=== PATIENT | male | born 1965 | race American Indian/Alaskan Native ===

== ENCOUNTER 2016-10-17 09:42 | Emergency (ER) | payer OTHER ==
[2016-10-17 10:29] VITALS: BP 140/86
--- NOTE | 2016-10-17 10:47 | Emergency Department Report ---
ED Back Pain/Injury HPI - General Chief Complaint: Back Pain/Injury Stated Complaint: BOTH HIPS AND BACK PAIN Time Seen by Provider: 10/17/16 10:31 Source: patient Limitations: No Limitations - History of Present Illness Initial Comments: Patient comes into the ER today with complaints of lower back pain and bilateral hip pain following a fall approximately 2 weeks ago. Patient states that he was coming off of a tractor when he fell backwards and landed on some rocks. Patient states that the fall was approximately 2-3 feet. Patient was able to get up on his own but was in pain instantly. Patient denies any loss of consciousness, vision changes, neck pain, abdominal pain. Patient comes in today due to the continued amount of pain in his lower back and bilateral hips. Patient does state that he has a history of hip problems and that a few years ago they wanted to do hip replacement surgery due to an old football injury. Patient denies any loss of bowel control, urinary control. Patient states that the pain is worse with walking or much of any movement. Patient states that the pain does radiate down into his legs with the left leg pain occasionally radiating all the way to his foot. MD Complaint: back pain, back injury -: week(s) (2) - Related Data Home Medications Medication Instructions Recorded Confirmed Last Taken Albuterol 12/20/14 12/20/14 Unknown traMADol 12/20/14 12/20/14 Unknown Previous Rx's Medication Instructions Recorded Last Taken Type Aspirin [Aspirin TAB] 81 mg PO QDAY #30 tablet 12/20/14 Unknown Rx AtorvaSTATin [Lipitor] 40 mg PO QHS #30 tablet 12/20/14 Unknown Rx Metoprolol [Lopressor TAB] 25 mg PO BID #60 tablet 12/20/14 Unknown Rx Amoxicillin/K Clav Tab [Augmentin 1 tab PO Q12HR #20 tab 10/19/15 Unknown Rx 875 mg] Acetaminophen/Codeine [Tylenol 1 tab PO Q6H PRN #20 tab 10/17/16 Unknown Rx /Codeine # 3 tab] Cyclobenzaprine HCl [Flexeril 5 MG 5 mg PO TID #15 tab 10/17/16 Unknown Rx TAB] predniSONE [Deltasone] 20 mg PO QDAY #18 tab 10/17/16 Unknown Rx Allergies Allergy/AdvReac Type Severity Reaction Status Date / Time No Known Allergies Allergy Unverified 12/18/14 13:26 ED Review of Systems ROS: Stated complaint: BOTH HIPS AND BACK PAIN Other details as noted in HPI Constitutional: denies: chills, fever Eyes: denies: eye pain, eye discharge, vision change ENT: denies: ear pain, throat pain Respiratory: denies: cough, shortness of breath, wheezing Cardiovascular: denies: chest pain, palpitations Endocrine: no symptoms reported Gastrointestinal: denies: abdominal pain, nausea, diarrhea Genitourinary: denies: urgency, dysuria Musculoskeletal: back pain, arthralgia, myalgia. denies: joint swelling Skin: denies: rash, lesions Neurological: denies: headache, weakness, paresthesias Psychiatric: denies: anxiety, depression Hematological/Lymphatic: denies: easy bleeding, easy bruising ED Past Medical Hx - Past Medical History Previous Medical History?: Yes Hx Heart Attack/AMI: Yes - Surgical History Past Surgical History?: No - Social History Smoking Status: Current Every Day Smoker Substance Use Type: Alcohol - Medications Home Medications: Home Medications Medication Instructions Recorded Confirmed Last Taken Type Albuterol 12/20/14 12/20/14 Unknown History Aspirin [Aspirin TAB] 81 mg PO QDAY #30 tablet 12/20/14 Unknown Rx AtorvaSTATin [Lipitor] 40 mg PO QHS #30 tablet 12/20/14 Unknown Rx Metoprolol [Lopressor TAB] 25 mg PO BID #60 tablet 12/20/14 Unknown Rx traMADol 12/20/14 12/20/14 Unknown History Amoxicillin/K Clav Tab [Augmentin 1 tab PO Q12HR #20 tab 10/19/15 Unknown Rx 875 mg] Acetaminophen/Codeine [Tylenol 1 tab PO Q6H PRN #20 tab 10/17/16 Unknown Rx /Codeine # 3 tab] Cyclobenzaprine HCl [Flexeril 5 MG 5 mg PO TID #15 tab 10/17/16 Unknown Rx TAB] predniSONE [Deltasone] 20 mg PO QDAY #18 tab 10/17/16 Unknown Rx ED Physical Exam - General Limitations: No Limitations General appearance: alert, in no apparent distress - Head Head exam: Present: atraumatic, normocephalic, normal inspection - Eye Eye exam: Present: normal appearance - ENT ENT exam: Present: mucous membranes moist - Neck Neck exam: Present: normal inspection, full ROM. Absent: tenderness - Respiratory Respiratory exam: Present: normal lung sounds bilaterally. Absent: respiratory distress - Cardiovascular Cardiovascular Exam: Present: regular rate, normal rhythm. Absent: systolic murmur, diastolic murmur, rubs, gallop - GI/Abdominal GI/Abdominal exam: Present: soft, normal bowel sounds. Absent: distended, tenderness, guarding, rebound, rigid - Rectal Rectal exam: Present: deferred - Extremities Exam Extremities exam: Present: normal inspection, tenderness (bilateral posterior and lateral hip tenderness), normal capillary refill. Absent: full ROM ( Limited range of motion of bilateral hips secondary to pain.), pedal edema, joint swelling, calf tenderness - Back Exam Back exam: Present: normal inspection, tenderness (lumbar paraspinal muscle tenderness as well as bilateral SI joint tenderness), muscle spasm (bilateral lumbar), paraspinal tenderness. Absent: CVA tenderness (R), CVA tenderness (L) , vertebral tenderness - Neurological Exam Neurological exam: Present: alert, oriented X3, CN II-XII intact, reflexes normal. Absent: motor sensory deficit - Psychiatric Psychiatric exam: Present: normal affect, normal mood - Skin Skin exam: Present: warm, dry, intact, normal color. Absent: rash ED Course Vital Signs 10/17/16 10:25 Temperature 98.1 F Pulse Rate 65 Respiratory 18 Rate Blood Pressure 140/86 O2 Sat by Pulse 100 Oximetry ED Medical Decision Making - Radiology Data Radiology results: report reviewed, image reviewed X-ray L-spine: No acute bone pathology, no loss of disc space, no misalignment, no fracture. Anterior vertebral body spurring noted. X-ray pelvis: Mild degenerative joint changes without any misalignment, dislocation, fractures noted. - Medical Decision Making Patient is nontoxic and hemodynamically stable. X-ray imaging reviewed and discussed with patient and family in room. Due to the ongoing duration of his symptoms for 2 weeks, I have some concern for possible discogenic etiology. I will refer patient to specialist for further evaluation. I have also encouraged patient to limit any strenuous or repetitive activity over the next few days. I will start patient on some medications appropriately. Patient is in agreement with treatment plan patient is stable for discharge. Critical care attestation.: If time is entered above; I have spent that time in minutes in the direct care of this critically ill patient, excluding procedure time. ED Disposition Clinical Impression: Low back pain, Lumbar contusion, Bilateral hip pain, Lumbar radiculopathy Disposition: TO HOME OR SELFCARE Is pt being admited?: No Does the pt Need Aspirin: No Condition: Stable Instructions: Acute Low Back Pain (ED), Contusion in Adults (ED), Lumbar Radiculopathy (ED) Prescriptions: Acetaminophen/Codeine [Tylenol /Codeine # 3 tab] 1 tab PO Q6H PRN #20 tab PRN Reason: Pain Cyclobenzaprine HCl [Flexeril 5 MG TAB] 5 mg PO TID #15 tab predniSONE [Deltasone] 20 mg PO QDAY #18 tab Referrals: PRIMARY CARE, [Primary Care Provider] - 3-5 Days DENA GRESHAM MD [Staff Physician] - 3-5 Days (Neurosurgeon) GATO PALMER MD [Staff Physician] - 3-5 Days (Orthopedic) Forms: Work/School Release Form(ED) Time of Disposition: 11:41
--- NOTE | 2016-10-17 11:06 | XRay Report ---
PELVIS RADIOGRAPH INDICATION: Fall, injury, pain. COMPARISON: 09/03/2010. FINDINGS: Frontal pelvic radiograph demonstrates intact articulation. Nonobstructive bowel gas pattern. Intact bilateral SI joints. Mild lower lumbar degenerative spurring. Mild left hip degenerative changes/narrowing also possible. CONCLUSION: No acute pelvic radiographic abnormality with few other findings, as above. Thank you for the opportunity to participate in this patient's care.
--- NOTE | 2016-10-17 11:12 | XRay Report ---
LUMBAR SPINE RADIOGRAPHS INDICATION: Pain, fall, injury. COMPARISON: None similar. FINDINGS: AP and lateral lumbar spine radiographs demonstrate multilevel degenerative spurring, though sparing L1. Normal alignment and disc heights. Nonobstructive bowel gas pattern. Intact SI joints. CONCLUSION: No acute radiographic abnormality with degenerative spurring noted. Thank you for the opportunity to participate in this patient's care.
== END 2016-10-17 11:49 | disposition home or self-care (01) ==
LOC: ED 09:42
DX: S30.0XXA Contusion of lower back and pelvis, initial encounter (principal); M25.551 Pain in right hip; M54.16 Radiculopathy, lumbar region; M25.552 Pain in left hip; I25.2 Old myocardial infarction; F17.200 Nicotine dependence, unspecified, uncomplicated; Z79.82 Long term (current) use of aspirin; V87.8XXA Person injured in other specified noncollision transport accidents involving motor vehicle (traffic), initial encounter; Y93.89 Activity, other specified; Y99.8 Other external cause status; Y92.89 Other specified places as the place of occurrence of the external cause
CPT/HCPCS: 72100; 72170; 99283

== ENCOUNTER 2017-01-13 15:50 | Emergency (ER) | payer OTHER ==
[2017-01-13 16:04] VITALS: BP 117/70
--- NOTE | 2017-01-13 16:11 | Emergency Department Report ---
Chief Complaint: Abdominal Pain Stated Complaint: LWR BACK/RIGHT SIDE PAIN Time Seen by Provider: 01/13/17 16:09 - HPI History of Present Illness: PT c/o low back pain that radiates to abd x 2 weeks - ROS Review of Systems: - cp - sob - vomiting + dark urine - Exam Vital Signs: Vital Signs 01/13/17 15:58 Temperature 98.0 F Pulse Rate 102 H Respiratory 18 Rate Blood Pressure 117/70 O2 Sat by Pulse 98 Oximetry Physical Exam: abd soft and non tender MSE screening note: Focused history and physical exam performed. Due to findings the following was ordered: labs ED Disposition for MSE Condition: Stable
[2017-01-13 17:08] LABS: Basophils % (Auto) 0.6 % (0.0-1.8); Eosinophils % (Auto) 0.9 % (0.0-4.3); Hematocrit 49.9 % (35.5-45.6); Hemoglobin 16.5 gm/dl (11.8-15.2); Mean Corpuscular HGB Conc 33 % (32-34); Mean Corpuscular Hemoglobin 29 pg (28-32); Mean Corpuscular Volume 89 fl (84-94); Platelet Count 200 K/mm3 (140-440); Red Blood Count 5.62 M/mm3 (3.65-5.03)
[2017-01-13 17:23] LABS: Alanine Aminotransferase 17 units/L (7-56); Albumin 4.2 g/dL (3.9-5); Albumin/Globulin Ratio 1.8 %; Alkaline Phosphatase 57 units/L (35-129); Anion Gap 16 mmol/L; BUN/Creatinine Ratio 18; Blood Urea Nitrogen 16 mg/dL (9-20); Calcium 9.1 mg/dL (8.4-10.2); Carbon Dioxide 28 mmol/L (22-30); Chloride 103.6 mmol/L (98-107); Glucose 99 mg/dL (75-100); Lipase 86 units/L (13-60); Potassium 4.3 mmol/L (3.6-5.0); Sodium 143 mmol/L (137-145); Total Protein 6.6 g/dL (6.3-8.2)
== END 2017-01-13 18:19 | disposition left against medical advice (07) ==
LOC: ED 15:50
DX: M54.5 Low back pain (principal); Z53.21 Procedure and treatment not carried out due to patient leaving prior to being seen by health care provider
CPT/HCPCS: 36415; 80053; 83690; 85025

== ENCOUNTER 2017-08-03 16:20 | Emergency (ER) | payer SELFPAY ==
[2017-08-03 16:43] VITALS: BP 132/84
[2017-08-03] MEDS ORDERED: NORCO 5/325 ONE (17:41)
[2017-08-03] MEDS ORDERED: NORCO 5/325 PO ONE (17:44)
[2017-08-03] MEDS ORDERED: TORADOL IM ONE (18:37)
--- NOTE | 2017-08-03 18:45 | Emergency Department Report ---
ED Back Pain/Injury HPI - General Chief Complaint: Back Pain/Injury Stated Complaint: BACK PAIN Time Seen by Provider: 08/03/17 18:34 Source: patient Limitations: No Limitations - History of Present Illness Initial Comments: This is a 52-year-old male nontoxic, well nourished in appearance, no acute signs of distress presents to the ED with c/o of acute on chronic low back pain x1 week. 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 Patient states has history of sciatica nerve pain which is similar symptoms as today. Patient states that pain radiates through to his left lower extremity. Patient denies any trauma. Denies any bladder or bowel instability. Denies any fever, chills, nausea, vomiting, headache, stiff neck, chest pain or shortness of breath. Patient denies any numbness or tingling. Denies any allergies. Denies significant past medical history. MD Complaint: back pain -: week(s) (1) Similar Symptoms Previously: Yes Place: work Radiation: left leg Severity: mild Severity scale (0 -10): 8 Quality: aching Consistency: intermittent Improves With: immobilization, supine, sitting upright Worsens With: movement, walking Associated Symptoms: denies other symptoms. denies: confusion, weakness, chest pain, numbness, difficulty walking, cough, difficulty urinating, diaphoresis, incontinence, fever/chills, constipation, headaches, abdominal pain, loss of appetite, malaise, nausea/vomiting, rash, seizure, shortness of breath, syncope - Related Data Home Medications Medication Instructions Recorded Confirmed Last Taken Albuterol 12/20/14 12/20/14 Unknown traMADol 12/20/14 12/20/14 Unknown Previous Rx's Medication Instructions Recorded Last Taken Type Aspirin [Aspirin TAB] 81 mg PO QDAY #30 tablet 12/20/14 Unknown Rx AtorvaSTATin [Lipitor] 40 mg PO QHS #30 tablet 12/20/14 Unknown Rx Metoprolol [Lopressor TAB] 25 mg PO BID #60 tablet 12/20/14 Unknown Rx Amoxicillin/K Clav Tab [Augmentin 1 tab PO Q12HR #20 tab 10/19/15 Unknown Rx 875 mg] Acetaminophen/Codeine [Tylenol 1 tab PO Q6H PRN #20 tab 10/17/16 Unknown Rx /Codeine # 3 tab] Cyclobenzaprine HCl [Flexeril 5 MG 5 mg PO TID #15 tab 10/17/16 Unknown Rx TAB] predniSONE [Deltasone] 20 mg PO QDAY #18 tab 10/17/16 Unknown Rx Cyclobenzaprine [Flexeril] 10 mg PO QHS PRN #7 tablet 08/03/17 Unknown Rx Ibuprofen [Motrin] 600 mg PO Q8H PRN #30 tablet 08/03/17 Unknown Rx Allergies Allergy/AdvReac Type Severity Reaction Status Date / Time No Known Allergies Allergy Unverified 12/18/14 13:26 ED Review of Systems ROS: Stated complaint: BACK PAIN Other details as noted in HPI Constitutional: denies: chills, fever Eyes: denies: eye pain, eye discharge, vision change ENT: denies: ear pain, throat pain Respiratory: denies: cough, shortness of breath, wheezing Cardiovascular: denies: chest pain, palpitations Endocrine: no symptoms reported Gastrointestinal: denies: abdominal pain, nausea, diarrhea Genitourinary: denies: urgency, dysuria Musculoskeletal: back pain. denies: joint swelling, arthralgia Skin: denies: rash, lesions Neurological: denies: headache, weakness, paresthesias Psychiatric: denies: anxiety, depression Hematological/Lymphatic: denies: easy bleeding, easy bruising ED Past Medical Hx - Past Medical History Previous Medical History?: No Hx Heart Attack/AMI: Yes - Surgical History Past Surgical History?: No - Social History Smoking Status: Current Every Day Smoker Substance Use Type: None - Medications Home Medications: Home Medications Medication Instructions Recorded Confirmed Last Taken Type Albuterol 12/20/14 12/20/14 Unknown History Aspirin [Aspirin TAB] 81 mg PO QDAY #30 tablet 12/20/14 Unknown Rx AtorvaSTATin [Lipitor] 40 mg PO QHS #30 tablet 12/20/14 Unknown Rx Metoprolol [Lopressor TAB] 25 mg PO BID #60 tablet 12/20/14 Unknown Rx traMADol 12/20/14 12/20/14 Unknown History Amoxicillin/K Clav Tab [Augmentin 1 tab PO Q12HR #20 tab 10/19/15 Unknown Rx 875 mg] Acetaminophen/Codeine [Tylenol 1 tab PO Q6H PRN #20 tab 10/17/16 Unknown Rx /Codeine # 3 tab] Cyclobenzaprine HCl [Flexeril 5 MG 5 mg PO TID #15 tab 10/17/16 Unknown Rx TAB] predniSONE [Deltasone] 20 mg PO QDAY #18 tab 10/17/16 Unknown Rx Cyclobenzaprine [Flexeril] 10 mg PO QHS PRN #7 tablet 08/03/17 Unknown Rx Ibuprofen [Motrin] 600 mg PO Q8H PRN #30 tablet 08/03/17 Unknown Rx ED Physical Exam - General Limitations: No Limitations General appearance: alert, in no apparent distress - Head Head exam: Present: atraumatic, normocephalic - Eye Eye exam: Present: normal appearance Pupils: Present: normal accommodation - ENT ENT exam: Present: normal exam, mucous membranes moist - Neck Neck exam: Present: normal inspection, full ROM. Absent: tenderness, meningismus - Respiratory Respiratory exam: Present: normal lung sounds bilaterally. Absent: respiratory distress, wheezes, rales, rhonchi, stridor, chest wall tenderness, accessory muscle use, decreased breath sounds, prolonged expiratory - Cardiovascular Cardiovascular Exam: Present: regular rate, normal rhythm, normal heart sounds. Absent: irregular rhythm, systolic murmur, diastolic murmur, rubs, gallop - GI/Abdominal GI/Abdominal exam: Present: soft, normal bowel sounds. Absent: distended, tenderness, guarding, rebound, rigid, diminished bowel sounds - Rectal Rectal exam: Present: deferred - Extremities Exam Extremities exam: Present: normal inspection, full ROM, normal capillary refill - Back Exam Back exam: Present: normal inspection, full ROM, paraspinal tenderness (lumbar region). Absent: tenderness, CVA tenderness (R), CVA tenderness (L), muscle spasm, vertebral tenderness, rash noted - Expanded Back Exam Expanded Back exam: Absent: saddle anesthesia Back exam: Negative Straight Leg Raising: Left, Right - Neurological Exam Neurological exam: Present: alert, oriented X3, normal gait - Psychiatric Psychiatric exam: Present: normal affect, normal mood - Skin Skin exam: Present: warm, dry, intact, normal color. Absent: rash ED Course Vital Signs 08/03/17 16:40 Temperature 97.9 F Pulse Rate 97 H Respiratory 19 Rate Blood Pressure 132/84 O2 Sat by Pulse 99 Oximetry - Reevaluation(s) Reevaluation #1: 08/03/17 18:46 Patient is speaking in full sentences with no signs of distress noted. ED Medical Decision Making - Medical Decision Making This is a 52-year-old male that presents with low back strain. Patient is stable was examined by me. There is no spinal tenderness. There is no cauda equina syndrome during examination. No bladder or bowel instability. Lumbar xray obtained. PAtint notified of the results with no questions noted. Patient received Toradol 60 mg IM in the ED which preceded his symptoms has resolved and subsided. Patient is discharged with muscle relaxant and Motrin. Patient was instructed not to operate any machinery while taking muscle relaxant as they cause her drowsiness. Patient was referred to Follow-up with a primary care doctor in 3-5 days or if symptoms worsen and continue return to emergency room as soon as possible. At time of discharge, the patient does not seem toxic or ill in appearance. No acute signs of distress noted. Patient agrees to discharge treatment plan of care. No further questions noted by the patient. This chart is dictated with using [employer] Critical care attestation.: If time is entered above; I have spent that time in minutes in the direct care of this critically ill patient, excluding procedure time. ED Disposition Clinical Impression: Low back strain Qualifiers: Encounter type: initial encounter Qualified Code(s): S39.012A - Strain of muscle, fascia and tendon of lower back, initial encounter Disposition: TO HOME OR SELFCARE Is pt being admited?: No Does the pt Need Aspirin: No Condition: Stable Instructions: Low Back Strain (ED), Cyclobenzaprine (By mouth), Ibuprofen (By mouth) Additional Instructions: Follow-up with your primary care doctor in 3-5 days or if symptoms worsen such as bladder or bowel stability, chest pain, short of breath, numbness or tingling sensation in extremities, headache, dizziness, visual changes, nausea vomiting, or abdominal pain, return back to emergency room as was possible. Take ibuprofen and Flexeril as prescribed. Do not operate heavy machinery while taking Flexeril due to sedation Prescriptions: Cyclobenzaprine [Flexeril] 10 mg PO QHS PRN #7 tablet PRN Reason: Muscle Spasm Ibuprofen [Motrin] 600 mg PO Q8H PRN #30 tablet PRN Reason: Pain Referrals: PRIMARY CARE, [Referring] - 3-5 Days BRYANT HUDSON MD [Staff Physician] - 3-5 Days [facility] [place] [Outside] - 3-5 Days [facility] [Outside] - 3-5 Days Forms: Work/School Release Form(ED)
--- NOTE | 2017-08-03 20:58 | XRay Report ---
FINAL REPORT EXAM: XR SPINE LUMBOSACRAL 2-3V HISTORY: low back pain TECHNIQUE: Lumbar spine 3 views PRIORS: None. FINDINGS: Vertebral bodies demonstrate normal height and alignment. There is spondylosis with marginal vertebral body osteophytes L3 through. Disc spaces are within normal limits. There is some narrowing and sclerosis at the SI joints bilaterally. There is no evidence of spondylolisthesis. Transverse and spinous processes are intact SI joints are unremarkable. IMPRESSION: Spondylosis with marginal vertebral body osteophytes Degenerative change at the SI joints
== END 2017-08-03 21:00 | disposition home or self-care (01) ==
LOC: ED 16:20
DX: S39.012A Strain of muscle, fascia and tendon of lower back, initial encounter (principal); F17.200 Nicotine dependence, unspecified, uncomplicated; Z79.82 Long term (current) use of aspirin; X58.XXXA Exposure to other specified factors, initial encounter; Y93.89 Activity, other specified; Y92.89 Other specified places as the place of occurrence of the external cause; Y99.8 Other external cause status
CPT/HCPCS: 72100; 96372; 99283; J1885

== ENCOUNTER 2019-06-29 20:43 | Emergency (ER) | payer OTHER ==
--- NOTE | 2019-06-29 20:54 | Emergency Department Report ---
Blank Doc - Documentation Documentation: 54-year-old male that presents with bilateral groin pain. This initial assessment/diagnostic orders/clinical plan/treatment(s) is/are subject to change based on patient's health status, clinical progression and re- assessment by fellow clinical providers in the ED. Further treatment and workup at subsequent clinical providers discretion. Patient/guardians urged not to elope from the ED as their condition may be serious if not clinically assessed and managed. Initial orders include: 1- Patient sent to [facility] for further evaluation and treatment 2- [facility]
[2019-06-29 20:56] VITALS: BP 133/89
[2019-06-29 23:04] LABS: Bilirubin,Urine NEG (Negative); Blood,Urine NEG (Negative); Color,Urine Yellow (Yellow); Mucus,Urine FEW /HPF; Protein,Urine <15 mg/dL mg/dL (Negative); Urobilinogen,Urine < 2.0 mg/dL (<2.0)
--- NOTE | 2019-06-30 02:30 | Emergency Department Report ---
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 This injury occurred about 2 2 days ago not responding to [id number] medication. Reports no testicular swelling, no dysuria no hematuria no fever, chills, sweats no back pain no head pain no loss of consciousness -: Sudden Place: home Severity: mild - Related Data Home Medications Medication Instructions Recorded Confirmed Last Taken Albuterol 12/20/14 12/20/14 Unknown traMADol 12/20/14 12/20/14 Unknown Previous Rx's Medication Instructions Recorded Last Taken Type Aspirin 81 mg PO QDAY #30 tablet 12/20/14 Unknown Rx AtorvaSTATin [Lipitor] 40 mg PO QHS #30 tablet 12/20/14 Unknown Rx Metoprolol [Lopressor TAB] 25 mg PO BID #60 tablet 12/20/14 Unknown Rx Amoxicillin/K Clav Tab [Augmentin 1 tab PO Q12HR #20 tab 10/19/15 Unknown Rx 875 mg] Acetaminophen/Codeine [Tylenol 1 tab PO Q6H PRN #20 tab 10/17/16 Unknown Rx /Codeine # 3 tab] Cyclobenzaprine HCl [Flexeril 5 MG 5 mg PO TID #15 tab 10/17/16 Unknown Rx TAB] predniSONE [Deltasone] 20 mg PO QDAY #18 tab 10/17/16 Unknown Rx Cyclobenzaprine [Flexeril] 10 mg PO QHS PRN #7 tablet 08/03/17 Unknown Rx Ibuprofen [Motrin] 600 mg PO Q8H PRN #30 tablet 08/03/17 Unknown Rx Ketorolac [Toradol] 10 mg PO Q6H PRN #10 tablet 06/29/19 Unknown Rx Allergies Allergy/AdvReac Type Severity Reaction Status Date / Time No Known Allergies Allergy Unverified 12/18/14 13:26 ED Review of Systems ROS: Stated complaint: GROIN PAIN Other details as noted in HPI Comment: All other systems reviewed and negative ED Past Medical Hx - Past Medical History Previous Medical History?: Yes Hx Heart Attack/AMI: Yes - Surgical History Past Surgical History?: No Additional Surgical History: cardiac cath ?-no blockage - Social History Smoking Status: Never Smoker Substance Use Type: None - Medications Home Medications: Home Medications Medication Instructions Recorded Confirmed Last Taken Type Albuterol 12/20/14 12/20/14 Unknown History Aspirin 81 mg PO QDAY #30 tablet 12/20/14 Unknown Rx AtorvaSTATin [Lipitor] 40 mg PO QHS #30 tablet 12/20/14 Unknown Rx Metoprolol [Lopressor TAB] 25 mg PO BID #60 tablet 12/20/14 Unknown Rx traMADol 12/20/14 12/20/14 Unknown History Amoxicillin/K Clav Tab [Augmentin 1 tab PO Q12HR #20 tab 10/19/15 Unknown Rx 875 mg] Acetaminophen/Codeine [Tylenol 1 tab PO Q6H PRN #20 tab 10/17/16 Unknown Rx /Codeine # 3 tab] Cyclobenzaprine HCl [Flexeril 5 MG 5 mg PO TID #15 tab 10/17/16 Unknown Rx TAB] predniSONE [Deltasone] 20 mg PO QDAY #18 tab 10/17/16 Unknown Rx Cyclobenzaprine [Flexeril] 10 mg PO QHS PRN #7 tablet 08/03/17 Unknown Rx Ibuprofen [Motrin] 600 mg PO Q8H PRN #30 tablet 08/03/17 Unknown Rx Ketorolac [Toradol] 10 mg PO Q6H PRN #10 tablet 06/29/19 Unknown Rx ED Physical Exam - General Limitations: No Limitations General appearance: alert, in no apparent distress - Head Head exam: Present: atraumatic, normocephalic - Eye Eye exam: Present: normal appearance - ENT ENT exam: Present: mucous membranes moist - Neck Neck exam: Present: normal inspection - Respiratory Respiratory exam: Present: normal lung sounds bilaterally. Absent: respiratory distress - Cardiovascular Cardiovascular Exam: Present: regular rate, normal rhythm. Absent: systolic murmur, diastolic murmur, rubs, gallop - GI/Abdominal GI/Abdominal exam: Present: soft, normal bowel sounds - Rectal Rectal exam: Present: deferred - Extremities Exam Extremities exam: Present: normal inspection, full ROM, tenderness, normal capillary refill. Absent: calf tenderness - Expanded Lower Extremity Exam Left Upper Leg exam: Present: tenderness (Tenderness to the left inguinal region with palpation. No bruising or swelling noted. Pain with a reduction. And opposed adduction.) Knee exam: Present: normal inspection, full ROM Lower Leg exam: Present: normal inspection, full ROM Gait: Positive: observed and normal - Back Exam Back exam: Present: normal inspection - Neurological Exam Neurological exam: Present: alert, oriented X3 - Psychiatric Psychiatric exam: Present: normal affect, normal mood - Skin Skin exam: Present: warm, dry, intact, normal color. Absent: rash ED Course Vital Signs 06/29/19 06/29/19 20:53 23:55 Temperature 98.4 F Pulse Rate 100 H 88 Respiratory 18 16 Rate Blood Pressure 133/89 O2 Sat by Pulse 97 97 Oximetry Critical care attestation.: If time is entered above; I have spent that time in minutes in the direct care of this critically ill patient, excluding procedure time. ED Disposition Clinical Impression: Groin strain Disposition: DC-01 TO HOME OR SELFCARE Is pt being admited?: No Does the pt Need Aspirin: No Condition: Stable Instructions: Groin Strain (ED), Ice Pack Application (ED) Prescriptions: Ketorolac [Toradol] 10 mg PO Q6H PRN #10 tablet PRN Reason: Pain Referrals: PRIMARY CARE, [Primary Care Provider] - 3-5 Days
== END 2019-06-29 23:55 | disposition home or self-care (01) ==
LOC: ED 20:43
DX: S39.011A Strain of muscle, fascia and tendon of abdomen, initial encounter (principal); I25.2 Old myocardial infarction; Z95.818 Presence of other cardiac implants and grafts; Z79.899 Other long term (current) drug therapy; X58.XXXA Exposure to other specified factors, initial encounter; Y93.89 Activity, other specified; Y92.89 Other specified places as the place of occurrence of the external cause; Y99.8 Other external cause status
CPT/HCPCS: 81001; 87086; 99283

== ENCOUNTER 2021-05-23 14:40 | Emergency (ER) | payer OTHER ==
[2021-05-23 14:52] VITALS: BP 118/74
[2021-05-23] MEDS ORDERED: dexAMETHasone 20 MG/5 ML VIAL IM ONE (15:04)
[2021-05-23] MEDS ORDERED: KETOROLAC 60 MG/2 ML INJ IM ONE (15:04)
--- NOTE | 2021-05-23 15:05 | Emergency Department Report ---
Upper Extremity - HPI Chief Complaint: Chest Pain Stated Complaint: CHEST AND RGHT ARM PAIN Time Seen by Provider: 05/23/21 15:01 Upper Extremity: Right Shoulder Occurred When: 5 Days Severity: moderate Symptoms: Yes Pain with Movement, No Deformity, No Limited Range of Movement, No Numbness, No Weakness, No Swelling, No Bruising/Ecchymosis, No Laceration or Abrasion Other History: 56 year old AA male dx of mild cardiomyopathy after hearth cath [id number] (coronary arteries were clear) denies any significant pmhx presents to ED with c/o right shoulder/right chest pain. onset x 1 week ago. He states pain is sharp, constant but waxes and waynes and it worse with movement of shoulder. He admits that he has been helping his cousin who is a bilateral amputee. He has been lifting and moving him. He states pain started after he starting helping him. He states that he noticed some bruising to his right chest but has not resolved. He denies falls or anything falling onto his chest. He has been taking [id number] medication without much relief. He denies shortness of breath, abdominal pain, nausea vomiting, lower extremity swelling or calf pain, or any additional symptoms at this time. ED Review of Systems ROS: Stated complaint: CHEST AND RGHT ARM PAIN Other details as noted in HPI Comment: All other systems reviewed and negative Constitutional: denies: chills, fever Eyes: denies: eye pain, eye discharge, vision change ENT: denies: ear pain, throat pain Respiratory: denies: cough, shortness of breath, SOB with exertion, SOB at rest, wheezing Cardiovascular: chest pain Gastrointestinal: denies: abdominal pain, nausea, diarrhea, constipation, hematemesis, hematochezia Genitourinary: denies: urgency, dysuria, frequency, hematuria, discharge, testicular pain, testicular mass Musculoskeletal: arthralgia Skin: denies: rash, lesions Neurological: denies: headache, weakness, numbness, paresthesias, confusion, abnormal gait, vertigo Psychiatric: denies: anxiety, depression, auditory hallucinations, visual hallucinations, homicidal thoughts, suicidal thoughts Hematological/Lymphatic: denies: easy bleeding, easy bruising, swollen glands ED Past Medical Hx - Past Medical History Previous Medical History?: Yes Hx Heart Attack/AMI: Yes - Surgical History Past Surgical History?: Yes Additional Surgical History: cardiac cath ?-no blockage - Social History Smoking Status: Never Smoker Substance Use Type: None - Medications Home Medications: Home Medications Medication Instructions Recorded Confirmed Last Taken Type Albuterol 12/20/14 12/20/14 Unknown History Aspirin 81 mg PO QDAY #30 tablet 12/20/14 Unknown Rx AtorvaSTATin [Lipitor] 40 mg PO QHS #30 tablet 12/20/14 Unknown Rx Metoprolol [Lopressor TAB] 25 mg PO BID #60 tablet 12/20/14 Unknown Rx Acetaminophen/Codeine [Tylenol 1 tab PO Q6H PRN #20 tab 10/17/16 Unknown Rx /Codeine # 3 tab] Ketorolac [Toradol] 10 mg PO Q6H PRN #10 tablet 05/23/21 Unknown Rx methOCARBAMOL [Robaxin TAB] 750 mg PO Q8H PRN #30 tab 05/23/21 Unknown Rx Upper Extremity Exam - Exam General: Vital signs noted. No distress. Alert and acting appropriately. Head and Torso: No HEENT Abnormality, No Neck Tenderness, No Chest/Lungs Abnormality, No Abdominal Tenderness, No Back Tenderness Shoulder Exam: Yes Shoulder Tenderness (right shoulder as well as right anterior upper chest wall ttp. No bruising, swelling or deformity noted. ), Yes Normal Range of Motion in Shoulder (but painful of right shoulder ), No Clavicle Tenderness, No Shoulder Deformity, No AC Joint Tenderness Arm Exam: No Arm/Humerus Tenderness, No Arm Deformity Elbow: Yes Normal Range of Motion in Elbow, No Elbow Tenderness, No Elbow Deformity Forearm: No Forearm Tenderness, No Forearm Deformity, No Pain with Pronation, No Pain with Supination Wrist: Yes Normal ROM in Wrist, No Wrist Tenderness, No Wrist Deformity, No Snuffbox Tenderness, No Pain with Axial Thumb Compression Hand: Yes Normal ROM in Digit(s), No Hand Tenderness, No Hand Deformity, No Digit Tenderness, No Digit(s) Deformity, No Tendon Dysfunction CMS Exam: Yes Normal Distal Pulses, Yes Normal Capillary Refill, Yes Normal Distal Sensation, No Broken Skin ED Course Vital Signs 05/23/21 14:49 Temperature 98.6 F Pulse Rate 110 H Respiratory 16 Rate Blood Pressure 118/74 [Left] O2 Sat by Pulse 98 Oximetry ED Medical Decision Making - Radiology Data Radiology results: report reviewed Patient: MARINA MOSER MR#: [id number] : 1965 Acct:[id number] Age/Sex: 56 / M ADM Date: 05/23/21 Loc: ED Attending Dr: Ordering Physician: BRIGITTE FOWLER Date of Service: 05/23/21 Procedure(s): XR chest routine 2V Accession Number(s): [id number] cc: BRIGITTE Posada MALCOLM Fluoro Time In Minutes: CHEST 2 VIEWS INDICATION: Right chest pain. COMPARISON: none FINDINGS: Support devices: None. Heart: Within normal limits. Lungs/pleura: No acute air space or interstitial disease. No pneumothorax. Additional findings: None. IMPRESSION: No acute findings. RIGHT SHOULDER 3 VIEWS INDICATION: Right shoulder pain. COMPARISON: None. IMPRESSION: No acute osseous or soft tissue abnormality. 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 Signer Name: Xu Gruber Jr, MD Signed: 05/23/2021 3:23 PM Workstation Name: [id number] Transcribed By: TTR Dictated By: XU GRUBER JR, MD Electronically Authenticated By: XU GRUBER JR, MD Signed Date/Time: 05/23/21 152 DD/ 152 TD/TT: Patient: MARINA MOSER MR#: [id number] : 1965 Acct:[id number] Age/Sex: 56 / M ADM Date: 05/23/21 Loc: ED Attending Dr: Ordering Physician: BRIGITTE FOWLER Date of Service: 05/23/21 Procedure(s): XR shoulder 2+V RT Accession Number(s): [id number] cc: BRIGITTE MARSHMLEY Fluoro Time In Minutes: CHEST 2 VIEWS INDICATION: Right chest pain. COMPARISON: none FINDINGS: Support devices: None. Heart: Within normal limits. Lungs/pleura: No acute air space or interstitial disease. No pneumothorax. Additional findings: None. IMPRESSION: No acute findings. RIGHT SHOULDER 3 VIEWS INDICATION: Right shoulder pain. COMPARISON: None. IMPRESSION: No acute osseous or soft tissue abnormality. 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 Signer Name: Xu Gruber Jr, MD Signed: 05/23/2021 3:23 PM Workstation Name: [id number] Transcribed By: TTR Dictated By: XU GRUBER JR, MD Electronically Authenticated By: XU GRUBER JR, MD Signed Date/Time: 05/23/211522 DD/ 21 TD/TT: - Medical Decision Making CXR and shoulder xray shows nothing acute. I suspect his pain to be more musculoskeletal and clinically this is less likely PE (he has no risk factors, no LE swelling or calf pain), or related to STEMI or unstable angina, dissection, acute arterial occlusion, or any other emergent conditions warranting additional testing at this time. Discussed imaging results with patient. Discussed suspected dx and treatment plan with patient. Recommend taking meds and trying to avoid strenous activity but he will be given referral info to Ortho for follow up. Patient expressed understanding and agreed with plan. Pt stable for d/c. Critical care attestation.: If time is entered above; I have spent that time in minutes in the direct care of this critically ill patient, excluding procedure time. ED Disposition Clinical Impression: Chest wall muscle strain, Shoulder sprain Disposition: 01 HOME / SELF CARE / HOMELESS Is pt being admited?: No Does the pt Need Aspirin: No Condition: Stable Instructions: Shoulder Sprain, Chest Wall Pain, [id number], Muscle Strain, [id number] Additional Instructions: I recommend taking the toradol and the muscle relaxer as prescribed. I recommend limiting use of that right shoulder for about 1 week. Follow up with Ortho if symptoms persist. Return to ED if symptoms worsens or changes in anyway. Prescriptions: methOCARBAMOL [Robaxin TAB] 750 mg PO Q8H PRN #30 tab PRN Reason: Muscle Spasm Ketorolac [Toradol] 10 mg PO Q6H PRN #10 tablet PRN Reason: Pain Referrals: GATO PALMER MD [Staff Physician] - 3-5 Days Forms: Work/School Release Form(ED) Time of Disposition: 15:38
--- NOTE | 2021-05-23 15:27 | XRay Report ---
CHEST 2 VIEWS INDICATION: Right chest pain. COMPARISON: none FINDINGS: Support devices: None. Heart: Within normal limits. Lungs/pleura: No acute air space or interstitial disease. No pneumothorax. Additional findings: None. IMPRESSION: No acute findings. RIGHT SHOULDER 3 VIEWS INDICATION: Right shoulder pain. COMPARISON: None. IMPRESSION: No acute osseous or soft tissue abnormality. 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 Signer Name: Xu Gruber Jr, MD Signed: 05/23/2021 3:23 PM Workstation Name: [id number]
== END 2021-05-23 16:01 | disposition home or self-care (01) ==
LOC: ED 14:40
DX: S29.011A Strain of muscle and tendon of front wall of thorax, initial encounter (principal); S43.90XA Sprain of unspecified parts of unspecified shoulder girdle, initial encounter; X58.XXXA Exposure to other specified factors, initial encounter; Y93.89 Activity, other specified; Y92.89 Other specified places as the place of occurrence of the external cause; Y99.8 Other external cause status
CPT/HCPCS: 71046; 73030; 96372; 99283; J1100; J1885